=== PATIENT | male | born 1970 | race Caucasian/White ===

== ENCOUNTER 2023-11-25 16:32 | Emergency (ER) | payer OTHER, SELFPAY ==
[2023-11-25 16:40] VITALS: BP 135/96
[2023-11-25] MEDS: ADACEL 0.5 ML IM (18:35)
--- NOTE | 2023-11-25 19:28 | ED.SKININJ ---
HPI-Injury
General
Chief Complaint: Skin Surface Trauma
Source: patient
Exam Limitations: none
Time Seen by Provider: 11/25/23 18:06
Nursing documentation reviewed up to this point in time: agreed with
History of Present Illness-Injury
Is this injury a work related problem?: No
Is pt an associate of [facility] [address] [facility]?: No
Initial Injury comments:
Accidentally cut finger with table saw. He has an avulsion injury to his left index finger involving nail and nailbed. To ED accompanied by parents for eval. Injury occurred just [employer]
Past History
Past History
ED Past Medical History: None
ED Past Surgical History: None
Review of Systems
Review of Systems
Allergies reviewed?: Yes
All Other Systems: ROS reviewed and negative except as documented in HPI and ROS
Constitutional: Reports no symptoms
Musculoskeletal: Reports no symptoms
Skin: Reports other (skin avulsion injury left distal index finger)
Neurological: Reports no symptoms
Psychiatric: Reports no symptoms
Phy Exam
General Physical Exam
General Presentation: well appearing and no apparent distress
General age: appears stated age
General Skin: warm and dry
General Habitus: normal
Musculoskeletal Exam
Musculoskeletal Exam: neuro vasc intact
Skin Exam
Skin Exam: normal color, warm/dry, no rash and other (skin avulsion injury left index finger involving half of fingernail and bed. No active bleeding. )
Psychiatric Exam
Psychiatric Exam: normal mood/affect
Course
Orders/Labs/Results
Orders:
Orders
11/25/23 18:13
Tetanus/Diphth/Acelpertussis [Adacel] 0.5 ml IM .ONCE ONE
Finger(s)/Thumb 2 View Lt [CR Finger(s)/thumb Min 2 Vw Lt] Urgent
Comment:
Reason For Exam: trauma
11/25/23 19:38
Cephalexin Monohydrate [Keflex] 500 mg PO NOW STA
Vital Signs
Initial and Last Documented VS:
Initial Vital Signs
Temp Pulse Resp BP Pulse Ox
98.3 F 73 18 135/96 98
11/25/23 16:40 11/25/23 16:40 11/25/23 16:40 11/25/23 16:40 11/25/23 16:40
Last Documented Vital Signs
Temp Pulse Resp BP Pulse Ox
98.3 F 73 18 135/96 98
11/25/23 16:40 11/25/23 16:40 11/25/23 16:40 11/25/23 16:40 11/25/23 16:40
*Radiology
Radiology exam reviewed: radiology read reviewed
*Critical Care Note
Total Time (30-74mins, 75-104mins- exclusive of procedures): Not Applicable
Update Note
Update Note:
Dr. Kendrick will follow up in office. Recommends 1/2 H2O2/water soaks, antibiotic ointment and bandaid. Keflex started in dept.
ED Attending Note
-
Portions of this chart may have been created with voice recognition software.� Occasional wrong word or��sound alike� substitutions may have occurred due to the inherent limitations of voice recognition software.
Discharge Plan
Departure
Patient Disposition: Home (Routine Discharge)
Date of Disposition: 11/25/23
Time of Disposition: 19:38
Patient with high blood pressure during this ER visit?: No
Condition: Good
Covid-19: Not Applicable
Discharge Problem:
Nailbed avulsion
Instructions: Wound Care (DC)
Prescriptions:
New
cephalexin 500 mg capsule
500 mg PO BID 10 Days Qty: 20 0RF
Referrals:
Addy Kendrick MD [Active] - Tomorrow
Conrad Jade MD [Family Provider] -
Activity Restrictions/Additional Instructions:
Wound care: Soak finger in 1/2 strength peroxide and water for 15-20 minutes at a time, 2 times daily. Apply antibiotic ointment and cover with bandaid.
Interventions
Interventions:
*Risk Screen - Suicide Last Done: 11/25/23 17:57
*General Assessment Last Done: 11/25/23 17:57
*Neglect/Abuse Screening Last Done: 11/25/23 17:57
*ED COVID-19 Vaccine History Last Done: 11/25/23 17:57
*Nursing Disposition Last Done: 11/25/23 19:57
ED-Skin Assessment Last Done: 11/25/23 17:27
Discharge Date and Time
Print Language: CITIZEN OF [place]
[2023-11-25] MEDS: KEFLEX 500 MG PO (19:46)
[2023-11-25 19:57] VITALS: BP 132/86
== END 2023-11-25 19:58 | disposition home or self-care (01) ==
LOC: EMR 16:32
PROVIDERS: EMERGENCY PHYSICIAN Emergency Medicine; FAMILY PHYSICIAN Internal Medicine
DX: S61.307A Unspecified open wound of left little finger with damage to nail, initial encounter (principal); W29.8XXA Contact with other powered hand tools and household machinery, initial encounter; Z23 Encounter for immunization
CPT/HCPCS: 99283; 90471; 73140; 90715

== ENCOUNTER 2025-01-06 06:07 | Day surgery (SDC) | payer OTHER, SELFPAY ==
[2025-01-03 13:48] VITALS: BMI 23.3
[2025-01-06] VITALS (8 sets, daily range): BP systolic 112–134; BP diastolic 66–81; BMI 23.3
[2025-01-06] MEDS: TYLENOL 1000 MG PO (07:42)
[2025-01-06] MEDS: NORMOSOL-R/PLASMALYTE-A 1000 IV (07:42)
--- NOTE | 2025-01-06 08:36 | W.SUR.PREOP ---
Pre-Operative Surgical Note
-
I have examined this patient prior to the performance of the scheduled procedure.
The patient's condition is unchanged from the time of the current History and
Physical and the patient is able to undergo the scheduled procedure.
--- NOTE | 2025-01-06 08:36 | HP.FOC2 ---
Focused History & Physical
Chief Complaint
HPI:
Chief Complaint: Left inguinal hernia, umbilical hernia
HPI / Indication for Planned Procedure: This is a 54-year-old male who presents with a symptomatic left inguinal hernia, and umbilical hernia. Will plan for a laparoscopic left inguinal hernia repair with mesh as well as an open umbilical hernia
repair with possible mesh.
Relevant Past Medical History: Negative
Relevant Social History: Negative
Relevant Family History: Negative
Relevant Past Surgical History: Negative
Review of Systems
Review of Pertinent Systems: All Systems Negative
Medication
See Medication form for detailed medications: Yes
Medication List (including Herbals & OTC):
epinephrine 0.3 mg/0.3 mL injection, auto-injector 0.3 mg IM Q5-15M PRN bee stings 12/28/24
loratadine 10 mg tablet 10 mg PO DAILY PRN allergies 12/28/24
Medications Reviewed: Yes
Allergies and Reactions
Patient has Allergies: No
Noted Allergies and Reactions:
Allergy/AdvReac Type Severity Reaction Status Date / Time
bee venom protein (honey bee) Allergy Swelling Verified 01/06/25 07:25
pollen extracts Allergy seasonal Verified 01/06/25 07:25
allergies
Pertinent Physical Exam
All Other Systems: Negative
Head/Neck: Normal
Diagnosis / Assessment
This is a 54-year-old male who presents with a symptomatic left inguinal hernia, and umbilical hernia.
Plan / Procedure
Will plan for a laparoscopic left inguinal hernia repair with mesh as well as an open umbilical hernia repair with possible mesh.
Anesthesia/Sedation to be done by Anesthesia Provider: Yes
--- NOTE | 2025-01-06 10:29 | W.IMMPOSTOP ---
Surgical Immed Post Op Note
-
Primary Surgeon: Schuyler Beal MD
Assisting Surgeon: None
Pre-op Diagnosis: Left inguinal hernia, umbilical hernia
Post-op Diagnosis: Same
Procedure Performed:
1. Laparoscopic left inguinal hernia repair with mesh (TEP approach)
2. Primary open umbilical hernia repair
Anesthesia Type: General
Specimen / Cultures: None
Estimated Blood Loss: 3 cc
Complications: None
Operative Findings: Small indirect inguinal hernia, no direct or femoral components. No cord lipoma. Small rent in the peritoneum closed with 0 PDS Endoloop. After achieving the critical view of the MPO, the space was reinforced with a large left
Bard 3D max mid weight uncoated polypropylene mesh.
--- NOTE | 2025-01-06 10:30 | OR.RPT ---
Operative Report
Operative Report
Patient Name: Ruben Jones
: 1970
Date of Operation: 01/06/2025
Preoperative Diagnosis: Reducible Inguinal hernia, left, umbilical hernia
Postoperative Diagnosis: Same
Procedure(s):
1. Laparoscopic Inguinal Hernia Repair, left (TEP approach)
2. Open primary umbilical hernia repair
Surgeon(s):
Dr. eBal
Director Of Security(s):
WINTER Frederick
Anesthesia: General
Estimated Blood Loss: 3 cc
Urine Output: None
Drains/Lines/Implants: Large 3D Max Bard Soft Mesh
Specimens: None
Indication for surgery: The patient has a history of groin pain and noted on exam to have a Left inguinal and umbilical hernia(s). Following review of therapeutic options they elected to undergo a minimally invasive repair.
Operative Findings: Small indirect inguinal hernia, no direct or femoral components. No cord lipoma. Small rent in the peritoneum closed with 0 PDS Endoloop. After achieving the critical view of the MPO, the space was reinforced with a large left
Bard 3D max mid weight uncoated polypropylene mesh.
Details of the operation:
After inducing general anesthesia and endotracheal intubation, the patient was prepped and draped in the supine position with both arms tucked. After infiltration with 0.25% Marcaine, a left periumbilical incision was made. Dissection was carried
down to the anterior sheath which was incised and the rectus muscle retracted laterally. An origin balloon was then inserted in through the posterior portion of the rectus into the preperitoneal space. This was insufflated under direct vision and
blunt dissection was therefore achieved in the preperitoneal space. The balloon was then removed and a 12mm Balloon trocar was placed. Two 5-mm ports were also placed in the midline below the camera port. Blunt dissection was used to dissect the
myopectineal orifice with care not to injure the epigastric vessels, gonadals or spermatic cord. Blunt dissection was used to identify the direct, indirect, and femoral spaces. There was a small rent in the peritoneum which was closed with a 0 PDS
Endoloop.
Left side:
The cord was inspected and a small indirect hernia sac was noted and reduced.
There was no cord lipoma.
There was no weakness in the direct space floor.
There was no femoral herniation.
A large 3D max mesh was then placed into position and positioned into the appropriate area to cover all 3 defects.
The area was then completely infiltrated with 20 cc of Marcaine without epinephrine (0.25%). The insufflation was slowly decreased and the mesh was assured to be in proper position with desufflation. We then turned our attention to the umbilicus.
The left periumbilical incision was extended medially and the umbilical hernia sac was encircled and then carefully dissected off of the umbilical stalk. The hernia sac was purposely entered to allow evacuation of some pneumoperitoneum. The defect
was small and contained only preperitoneal fat. As such we elected to do a primary repair alone without mesh. The Marita trocar site lateral to this was closed with 0 PDS in a [id number] fashion. We then closed the umbilical hernia defect
with 2 [id number] 0 PDS sutures. The umbilical stalk was then tacked down to the fascia using a 3-0 Vicryl suture and the skin for all port sites were then closed with 4-0 Monocryl followed by Dermabond. Inspection of the scrotum revealed
both testes to be in position. The patient returned to the recovery room in stable condition. Sponge and instrument counts were correct. No specimen sent to pathology
I was the attending physician and performed the procedure with assistance of the PA above. The assistance of WINTER Frederick was required due to the complexity of the procedure. During the procedure Gretel assisted with tissue retraction, resection,
holding camera and closure of the wound. I was present for all portions of the case, excluding skin closure.
Schuyler Beal MD
== END 2025-01-06 12:05 | disposition home or self-care (01) ==
LOC: SDS 06:07
PROVIDERS: ATTENDING PHYSICIAN Surgery; FAMILY PHYSICIAN Internal Medicine
DX: K40.90 Unilateral inguinal hernia, without obstruction or gangrene, not specified as recurrent (principal); K42.9 Umbilical hernia without obstruction or gangrene
CPT/HCPCS: 49650; 36415; 93005; C1781